=== PATIENT | male | born 1935 | race Caucasian/White ===

== ENCOUNTER 2018-04-30 10:45 | Day surgery (SDC) | payer MEDICARE, BC ==
[2018-04-30] MEDS ORDERED: Sodium Chloride 0.9% 10 ML Syringe IV ONE (10:46)
[2018-04-30] MEDS ORDERED: Dexamethasone 4 MG/ML SDV IV ONE (10:46)
[2018-04-30] MEDS ORDERED: Midazolam 1 MG/ML 2 ML SDV IV ONE (10:46)
[2018-04-30] MEDS ORDERED: Timolol Maleate 0.5% Ophth Soln 5 ML Bottle EYERT ONE (11:00)
[2018-04-30] MEDS ORDERED: Moxifloxacin 0.5% Ophth Soln 3 ML Bottle EYERT ONE (11:00)
[2018-04-30] MEDS ORDERED: Sodium Chloride 0.9% 10 ML Syringe FLUSH PRN (11:00)
[2018-04-30] MEDS ORDERED: Phenylephrine 10% Ophth Soln 5 ML Bot EYERT PRN (11:00)
[2018-04-30] MEDS ORDERED: Acetaminophen 325 MG Tab PO PRN (11:00)
[2018-04-30] MEDS ORDERED: Phenylephrine 10% Ophth Soln 5 ML Bot EYERT ONE (11:00)
[2018-04-30] MEDS ORDERED: Cataract Ophth Solution EYERT ONE (11:00)
[2018-04-30] MEDS ORDERED: Proparacaine 0.5% Ophth Soln 15 ML Bottle EYERT ONE (11:00)
[2018-04-30] MEDS ORDERED: Povidone-Iodine 5% Sterile Ophth Soln 30 ML Bottle EYERT ONE ×2 (11:00→11:39)
[2018-04-30] MEDS ORDERED: Ondansetron 4 MG/2 ML SDV IVPUSH PRN (11:00)
[2018-04-30] MEDS ORDERED: Lidocaine 1% 30 ML SDV ONE (11:38)
[2018-04-30] MEDS ORDERED: Tetracaine HCl/PF 0.5% 4 ML Bottle EYERT ONE (11:39)
[2018-04-30] MEDS ORDERED: Apraclonidine 0.5% Ophth Soln 5 ML Bot EYERT ONE (11:39)
[2018-04-30] MEDS ORDERED: Diclofenac Sodium 0.1% Ophth Soln 5 ML Bottle EYERT ONE (11:39)
[2018-04-30] MEDS ORDERED: Balanced Salt Solution Ophth Irrig 500 ML Bottle IOCULAR ONE (11:40)
[2018-04-30] MEDS ORDERED: Vancomycin 500 MG SDV EYERT ONE (11:40)
[2018-04-30] MEDS ORDERED: Chondroitin Sulfate/Hyaluronate Sodium Ophth Inj 0.75 ML Syringe EYERT ONE (11:40)
[2018-04-30] MEDS ORDERED: Dexamethasone/Neomycin/Polymyxin B Ophth Oint 3.5 GM Tube EYERT ONE (11:40)
[2018-04-30 13:06] VITALS: BP 119/69
--- NOTE | 2018-04-30 14:11 | OR ---
DATE: 04/30/2018 PREOPERATIVE DIAGNOSIS: Visually significant mixed cataract, right eye. POSTOPERATIVE DIAGNOSIS: Visually significant mixed cataract, right eye. PROCEDURE: Extracapsular cataract extraction with intraocular lens implant, right eye. ANESTHESIA: Topical/local MAC. COMPLICATIONS: None. INDICATION: The patient was seen in the clinic with complaints of blurred vision. Examination revealed visually significant cataract. I explained options; offered cataract surgery; and I explained risks including the potential for infection, retinal detachment, and loss of vision amongst others. We discussed implant options. He requested surgery with a monofocal implant. OPERATIVE DESCRIPTION: After informed consent was obtained and the risks, benefits, and alternatives were explained, the patient was brought to the operative suite and topical anesthesia was administered. The patient was then prepped and draped in the sterile fashion, and attention was placed on the right eye. A sterile lid speculum was placed into the right eye to allow operative exposure. A full-thickness paracentesis was made in the temporal portion of the operative eye. Preservative-free lidocaine 0.1 mL was injected into the anterior chamber followed by viscoelastic. A full-thickness corneal incision was then made into the anterior chamber. A bent needle cystotome was used to create a small anthony in the anterior capsule. The capsulorrhexis forceps was then used to create a 360-degree curvilinear capsulorrhexis. The nucleus was then removed using a phacoemulsification handpiece, and the remaining cortical material was then removed with irrigation and aspiration handpiece. Following removal of the cortical material, the capsular bag was then inspected and noted to be free of any holes or tears. Viscoelastic was then injected into the capsular bag, and the intraocular lens was inserted into the capsular bag. The viscoelastic material was then removed from both the anterior and posterior chambers and from behind the IOL. The lens and capsular bag were then reinspected. The IOL was well centered and the capsular bag intact. The wound and paracentesis sites were inspected and hydrated with balanced saline solution. Both were found to be self-sealing. The intraocular pressure was assessed digitally and found to be within normal range. A good red reflex was noted at the completion of the procedure. No complications occurred during the operation. At the completion of the procedure, Maxitrol, Voltaren, and Iopidine drops were placed into the operative eye. A sterile eye shield was placed over the operative eye, and the patient was transported to the postoperative recovery area having tolerated the procedure well. Postoperative instructions were given along with a postoperative appointment. The patient was advised to call with any questions or concerns. [facility] /[id number]
== END 2018-04-30 12:51 | disposition home or self-care (01) ==
LOC: DL.SDS 10:45
PROVIDERS: ATTEND Ophthalmology
DX: H25.811 Combined forms of age-related cataract, right eye (principal); I12.9 Hypertensive chronic kidney disease with stage 1 through stage 4 chronic kidney disease, or unspecified chronic kidney disease; N18.3 Chronic kidney disease, stage 3 (moderate); E66.9 Obesity, unspecified; Z68.29 Body mass index [BMI] 29.0-29.9, adult; H91.93 Unspecified hearing loss, bilateral; I25.10 Atherosclerotic heart disease of native coronary artery without angina pectoris; E78.5 Hyperlipidemia, unspecified; Z87.891 Personal history of nicotine dependence; Z79.82 Long term (current) use of aspirin; Z79.899 Other long term (current) drug therapy; Z98.42 Cataract extraction status, left eye
CPT/HCPCS: 00142; 66984; A9270; J1100; J2250; J3370; V2632

== ENCOUNTER 2021-11-10 12:15 | Emergency (ER) | payer MEDICARE, OTHER ==
[2021-11-10] MEDS ORDERED: Sodium Chloride 0.9% 10 ML Syringe FLUSH PRN (12:54)
[2021-11-10] MEDS ORDERED: Ondansetron 4 MG/2 ML SDV ONE (13:01)
[2021-11-10] MEDS ORDERED: Ondansetron 4 MG/2 ML SDV IVPUSH ONE (13:02)
[2021-11-10 13:15] VITALS: BP 137/62; PULSE 59
[2021-11-10 13:55] LABS: ANION GAP 12.4 mEq/L (7-13)
== END 2021-11-10 15:50 | disposition home or self-care (01) ==
LOC: DL.ED 12:15
DX: H81.10 Benign paroxysmal vertigo, unspecified ear (principal); Z79.82 Long term (current) use of aspirin; Z79.899 Other long term (current) drug therapy; Z20.822 Contact with and (suspected) exposure to COVID-19
CPT/HCPCS: 36415; 80053; 81001; 83735; 83880; 84484; 85025; 86140; 93005; 96374; 99284; J2405; J3490; U0002; 93010; 99283

== ENCOUNTER 2023-08-29 06:26 | Day surgery (SDC) | payer MEDICARE, OTHER ==
[~2023-08-29 06:26] MED LIST: Midazolam 1 MG/ML 2 ML SDV ONE; fentaNYL 100 MCG/2 ML SDV ONE
[2023-08-29] MEDS ORDERED: Midazolam 1 MG/ML 2 ML SDV IV ONE (06:27)
[2023-08-29] MEDS ORDERED: fentaNYL 100 MCG/2 ML SDV IV ONE (06:27)
[2023-08-29] MEDS ORDERED: Dextrose 5%-0.45% NaCl 1,000 ML IV SCH (06:30)
[2023-08-29] MEDS: fentaNYL 100 MCG/2 ML SDV IV ONE ×2 (07:30→07:31)
[2023-08-29] MEDS: Midazolam 1 MG/ML 2 ML SDV IV ONE (07:32)
[2023-08-29 07:40] VITALS: BP 120/106; PULSE 73
[2023-08-29] MEDS: Dextrose 5%-0.45% NaCl 1,000 ML IV SCH (10:07)
== END 2023-08-29 09:30 | disposition home or self-care (01) ==
LOC: DL.ENDO 06:26
PROVIDERS: ATTEND Internal Medicine Gastroenterology
DX: R13.10 Dysphagia, unspecified (principal)
CPT/HCPCS: J2250; J3010; J7042